=== PATIENT | female | born 1940 | race Caucasian/White ===

== ENCOUNTER 2019-02-01 15:21 | Day surgery (SDC) | payer OTHER, MEDICARE ==
[2019-02-01] MEDS ORDERED: ETOMIDATE 20 MG INJ (15:54)
== END 2019-02-01 17:25 | disposition home or self-care (01) ==
LOC: GIL 15:21
DX: K92.1 Melena (principal); K44.9 Diaphragmatic hernia without obstruction or gangrene; K29.00 Acute gastritis without bleeding; I10 Essential (primary) hypertension; J45.909 Unspecified asthma, uncomplicated; I48.91 Unspecified atrial fibrillation
CPT/HCPCS: 43239; 82962; 88305; 88312